=== PATIENT | female | born 1950 | race Caucasian/White ===

== ENCOUNTER 2024-10-03 15:59 | Emergency (ER) | payer MEDICARE, OTHER ==
--- OUTSIDE RECORDS SUMMARY | 2024-10-03 16:02 | XMS REPORT | Clinical Summary ---
Author Name Unknown Organization [facility] Address [address] [place] [address] Care Team Providers Care Tub Attendant Name Role Phone Richard Patel MD Unavailable [phone] Tyler Herzog MD Primary Care Provider [phone] Allergies No known active allergies Medications famotidine (PEPCID) 20 mg tablet Take 1 tablet (20 mg) by mouth daily. 07/20/2023 Active citalopram (CeleXA) 20 mg tablet Take 1 tablet (20 mg) by mouth daily. 08/11/2023 Active fluticasone propionate (FLONASE) 50 mcg/spray nasal spray Inhale 1 spray (50 mcg) into each nostril daily. 07/20/2023 Active losartan-hydroc hlorothiazide (HYZAAR) 100-25 mg per tablet Take 1 tablet by mouth daily. 07/20/2023 Active amLODIPine (NORVASC) 5 mg tablet Take 1 tablet (5 mg) by mouth daily. Active aspirin 81 mg chewable tablet Chew 1 tablet (81 mg) daily. Active calcium carbonate (TUMS) 500 mg (215 mg elemental calcium per tablet) chewable tablet Chew 1 tablet (500 mg) daily. Active cholecalciferol , vitamin D3, 25 mcg (1,000 unit) tablet Take 1 tablet (1,000 Units) by mouth daily. Active multivitamin tab tablet Take 1 tablet by mouth daily. Active omega-3 acid ethyl esters (LOVAZA) 1 g capsule Take 1 capsule (1 g) by mouth daily. Active polycarbophil (FIBERCON) 625 mg tablet Take 1 tablet (625 mg) by mouth daily. Active simvastatin (ZOCOR) 20 mg tablet Take 1 tablet (20 mg) by mouth at bedtime. Active estradiol (ESTRACE) 0.1 mg/g (0.01%) vaginal cream Insert 0.01 g into the vagina 3 (three) times a week on Monday, and Monday. 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 Hypertension 08/17/2023 Patient immunocompromised 08/17/2023 Gastroesophageal reflux disease 08/17/2023 Marginal zone lymphoma Encounters Date Type Department Care Team Description 05/28/2024 9:40 AM CDT [facility] [address] [place] [address] Main [facility], 8th [place] [address] Tyler Herzog MD Marginal zone lymphoma (Primary Dx) 05/28/2024 8:00 AM CDT - 05/28/2024 11:59 PM CDT Hospital [facility] [address] [place] [address], [place] [address] Angelique Irwin APRN Chronic lymphocytic leukemia of B-cell type Discharge Disposition: Home 05/28/2024 Orders Only Leukemia Center [address] [place] [address] Main [facility], 8th [place] [address] Angelique Irwin APRN Chronic lymphocytic leukemia of B-cell type (Primary Dx) 05/28/2024 Travel 11/30/2023 Orders Only [facility] [address] [place] [address], 8th [place] [address] Angelique Irwin APRN Chronic lymphocytic leukemia of B-cell type (Primary Dx) 11/28/2023 8:40 AM MERRY GO ROUND OPERATOR Follow[facility] [address] [place] [address] Main [facility], 8th [place] [address] Tyler Herzog MD Marginal zone lymphoma (Primary Dx); Chronic lymphocytic leukemia of B-cell type 11/28/2023 7:00 AM MERRY GO ROUND OPERATOR - 11/28/2023 11:59 PM MERRY GO ROUND OPERATOR Hospital [facility] [address] [place] [address] [place] [address] Angelique Irwin APRN Chronic lymphocytic leukemia of B-cell type Discharge Disposition: Home 11/28/2023 Travel after 10/04/2023 Surgical History Surgery Date Site/Laterality Comments COLONOSCOPY 2019 CHOLECYSTECTOMY 08/2022 Medical History Medical History Date Comments Hypertension 2001 Hyperlipidemia 2001 Fatty liver 2020 Gallstone 2020 Menopause 2007 Eczema 2022 Leukemia 2020 CLL Basal cell carcinoma of skin 2021 Lef t berg Family History Medical History Relation Name Comments Anal cancer Brother Kolby Cary 8 mos Prostate cancer Father Marlon Cary 40 yrs Relation Name Status Comments Brother Kolby Cary Father Marlon Cary Social History Tobacco Use Types Packs/Day Years Used Date Smoking Tobacco: Former Cigarettes 0.3 26 0 03/02/1963 - 03/02/1989 Smokeless Tobacco: Never Tobacco Cessation:Counseling Given: Not Answered Alcohol Use Standard Drinks/Week Comments Yes 2 (1 standard drink = 0.6 oz pur e alcohol) Weekly Comments Unknown Sex and Gender Information Value Date Recorded Sex Assigned at Not on file Legal Sex Female 2:24 PM CDT Gender Identity Not on file Sexual Orientation Not on file Obstetrics History Last Filed Vital Signs Vital Sign Reading Time Taken Comments Blood Pressure 134/71 05/28/2024 9:54 AM CDT Pulse 63 05/28/2024 9:54 AM CDT Temperature 36.8 C (98.2 F) 05/28/2024 9:54 AM CD T Respiratory Rate 19 05/28/2024 9:54 AM CDT Oxygen Saturation 96% 05/28/2024 9:54 AM CDT Inhaled Oxygen Concentration - - Weight 70.4 kg (155 lb 3.3 oz) 05/28/2024 9:54 A M CDT Height - - Body Mass Index 31.71 08/15/2023 8:55 AM MERRY GO ROUND OPERATOR Plan of Treatment Upcoming Encounters Date Type Department Care Team (Late st Contact Info) Description 11/29/2024 8:00 AM MERRY GO ROUND OPERATOR Appointment [facility] [address] [place] [address], [place] [address] Angelique David APRN [address] [place], [place] [id number] [email or web address] 11/29/2024 9:40 AM MERRY GO ROUND OPERATOR Follow-Up Le[facility] [address] [facility] Main Bldg, 8th [place] [address] yTler Herzog MD [address] [place] [address] [email or web address] Health Maintenance Due Date Last Done Comments COVID-19 Vaccine (2 - Pfizer risk series) 07/29/2022 07/08/2022 Influenza Vaccine (#1) 2024 07/08/2022 Pneumococcal Vaccine: 65+ Years Completed 3 Procedures Procedure Name Priority Date/Time Associated Diagnosis Comments .CBC Routine 05/28/2024 8:37 AM CDT Chronic lymphocytic leukemia of B-cell type COMPLETE BLOOD COUNT W/ DIFFERENTIAL Routine 05/28/2024 8:37 AM CDT Chronic lymphocytic leukemia of B-cell type TYPE AND SCREEN Routine 05/28/2024 8:37 AM CDT Chronic lymphocytic leukemia of B-cell type RETICULOCYTE COUNT AUTOMATED Routine 05/28/2024 8:37 AM CDT Chronic lymphocytic leukemia of B-cell type BETA 2 MICROGLOBULIN Routine 05/28/2024 8:37 AM CDT Chronic lymphocytic leukemia of B-cell type IMMUNOGLOBULIN G Routine 05/28/2024 8:37 AM CDT Chronic lymphocytic leukemia of B-cell type IMMUNOGLOBULIN M Routine 05/28/2024 8:37 AM CDT Chronic lymphocytic leukemia of B-cell type IMMUNOGLOBULIN A Routine 05/28/2024 8:37 AM CDT Chronic lymphocytic leukemia of B-cell type ASPARTATE AMINOTRANSFERASE Routine 05/28/2024 8:37 AM CDT Chronic lymphocytic leukemia of B-cell type MAGNESIUM LEVEL Routine 05/28/2024 8:37 AM CDT Chronic lymphocytic leukemia of B-cell type ELECTROLYTE PANEL Routine 05/28/2024 8:3 7 AM CDT Chronic lymphocytic leukemia of B-cell type ALANINE AMINOTRANSFERASE Routine 024 8:37 AM CDT Chronic lymphocytic leukemia of B-cell type LACTATE DEHYDROGENASE Routine 05/28/2024 8:37 AM CDT Chronic lymphocytic leukemia of B-cell type ALKALINE PHOSPHATASE Routine 05/28/2024 8:37 AM CDT Chronic lymphocytic leukemia of B-cell type FRACTIONATED BILIRUBIN Routine 8:37 AM CDT Chronic lymphocytic leukemia of B-cell type URIC ACID Routine 05/28/2024 8:37 AM CDT Chronic lymphocytic leukemia of B-cell type CREATININE Routine 05/28/2024 8:37 AM CDT Chronic lymphocytic leukemia of B-cell type BLOOD UREA NITROGEN Routine 05/28/2024 8 :37 AM CDT Chronic lymphocytic leukemia of B-cell type GLUCOSE, RANDOM Routine 05/28/2024 8:37 AM CDT Chronic lymphocytic leukemia of B-cell type PHOSPHORUS LEVEL Routine 05/28/2024 8:37 AM CDT Chronic lymphocytic leukemia of B-cell type CALCIUM LEVEL Routine 05/28/2024 8:37 AM CDT Chronic lymphocytic leukemia of B-cell type ALBUMIN LEVEL Routine 05/28/2024 8:37 AM CDT Chronic lymphocytic leukemia of B-cell type TOTAL PROTEIN Routine 05/28/2024 8:37 AM CDT Chronic lymphocytic leukemia of B-cell type .CBC Routine 11/28/2023 7:55 AM MERRY GO ROUND OPERATOR Chronic lymphocytic leukemia of B-cell type TYPE AND SCREEN Routine 11/28/2023 7:55 AM MERRY GO ROUND OPERATOR Chronic lymphocytic leukemia of B-cell type COMPLETE BLOOD COUNT W/ DIFFERENTIAL Routine 11/28/2023 7:55 AM MERRY GO ROUND OPERATOR Chronic lymphocytic leukemia of B-cell type RETICULOCYTE COUNT AUTOMATED Routine 11/28/2023 7:55 AM MERRY GO ROUND OPERATOR Chronic lymphocytic leukemia of B-cell type BETA 2 MICROGLOBULIN Routine 11/28/2023 7:55 AM MERRY GO ROUND OPERATOR Chronic lymphocytic leukemia of B-cell type IMMUNOGLOBULIN G Routine 11/28/2023 7:55 AM MERRY GO ROUND OPERATOR Chronic lymphocytic leukemia of B-cell type IMMUNOGLOBULIN M Routine 11/28/2023 7:55 AM MERRY GO ROUND OPERATOR Chronic lymphocytic leukemia of B-cell type IMMUNOGLOBULIN A Routine 11/28/2023 7:55 AM MERRY GO ROUND OPERATOR Chronic lymphocytic leukemia of B-cell type ASPARTATE AMINOTRANSFERASE Routine 11/28/2023 7:55 AM MERRY GO ROUND OPERATOR Chronic lymphocytic leukemia of B-cell type MAGNESIUM LEVEL Routine 11/28/2023 7:55 AM MERRY GO ROUND OPERATOR Chronic lymphocytic leukemia of B-cell type ELECTROLYTE PANEL Routine 11/28/2023 7:5 5 AM MERRY GO ROUND OPERATOR Chronic lymphocytic leukemia of B-cell type ALANINE AMINOTRANSFERASE Routine 024 7:55 AM MERRY GO ROUND OPERATOR Chronic lymphocytic leukemia of B-cell type LACTATE DEHYDROGENASE Routine 11/28/2023 7:55 AM MERRY GO ROUND OPERATOR Chronic lymphocytic leukemia of B-cell type ALKALINE PHOSPHATASE Routine 11/28/2023 7:55 AM MERRY GO ROUND OPERATOR Chronic lymphocytic leukemia of B-cell type FRACTIONATED BILIRUBIN Routine 7:55 AM MERRY GO ROUND OPERATOR Chronic lymphocytic leukemia of B-cell type URIC ACID Routine 11/28/2023 7:55 AM MERRY GO ROUND OPERATOR Chronic lymphocytic leukemia of B-cell type CREATININE Routine 11/28/2023 7:55 AM MERRY GO ROUND OPERATOR Chronic lymphocytic leukemia of B-cell type BLOOD UREA NITROGEN Routine 11/28/2023 7 :55 AM MERRY GO ROUND OPERATOR Chronic lymphocytic leukemia of B-cell type GLUCOSE, RANDOM Routine 11/28/2023 7:55 AM MERRY GO ROUND OPERATOR Chronic lymphocytic leukemia of B-cell type PHOSPHORUS LEVEL Routine 11/28/2023 7:55 AM MERRY GO ROUND OPERATOR Chronic lymphocytic leukemia of B-cell type CALCIUM LEVEL Routine 11/28/2023 7:55 AM MERRY GO ROUND OPERATOR Chronic lymphocytic leukemia of B-cell type ALBUMIN LEVEL Routine 11/28/2023 7:55 AM MERRY GO ROUND OPERATOR Chronic lymphocytic leukemia of B-cell type TOTAL PROTEIN Routine 11/28/2023 7:55 AM MERRY GO ROUND OPERATOR Chronic lymphocytic leukemia of B-cell type after 10/04/2023 Results * Glucose, Random (05/28/2024 8:37 AM CDT) Only the most recent of2 resultswithin the time period is included. Glucose Random 93 70 - 199 mg/dL 05/28/2024 9:32 AM CDT [facility] Blood Peripheral blood specimen / Unknown Venipuncture / Unknown 05/28/2024 8:37 AM CDT 05/28/2024 8:40 AM CDT Narrative [facility] - 05/28/2024 9:32 AM CDT Effective 04/27/16, the glucose reference intervals have been updated based on [place] [employer] guidelines (Standards of Medical Care in Diabetes 2016. Diabetes Care 2016; 39: S13-S22). Fasting blood glucose: Normal: 70-99 mg/dL Impaired fasting glucose (increased risk for diabetes or pre-diabetes): 100-125 mg/dL Diabetes mellitus: >/=126 mg/dL Random blood glucose: Normal: 70-199 mg/dL Note: Random glucose >100 mg/dL is associated with increased risk for diabetes Angelique David AUTOMATION TENDER LAB BLOOD ORDERABLES Final Result [facility] Unless otherwise noted, all lab tests performed by: Division of Pathology and Laboratory Medicine [address] [place] [phone] * (ABNORMAL) .CBC (05/28/2024 8:37 AM CDT) Only the most recent of2 resultswithin the time period is included. White Blood Cell 9.3 4.1 - 10.5 K/uL 05/28/2024 8:44 AM CDT [facility] Red Blood Cell 4.34 3.99 - 5.46 M/uL 05/28/2024 8:44 AM CDT [facility] Hemoglobin 13.7 12.2 - 15.3 g/dL 05/28/2024 8:44 AM CDT [facility] Hematocrit 40.4 36.4 - 46.8 % 05/28/2024 8:44 AM CDT [facility] Mean Cell Volume 93 82 - 99 fL 05/28/2024 8:44 AM CDT [facility] Mean Cell Hemoglobin 31.6 26.6 - 33.2 pg 05/28/2024 8:44 AM CDT [facility] Mean Cell Hemoglobin Concentration 33.9 31.1 - 35.2 g/dL 05/28/2024 8:44 AM CDT [facility] RDW-SD 41.2 37.5 - 49.7 fL 05/28/2024 8:44 AM CDT [facility] Red Cell Diameter Width 12.0 11.6 - 15.5 % 05/28/2024 8:44 AM CDT [facility] Platelet 207 160 - 397 K/uL 05/28/2024 8:44 AM CDT [facility] Mean Platelet Volume 9.8 9.1 - 12.6 fL 05/28/2024 8:44 AM CDT [facility] INRBC 0.0 0.0 - 0.1 /100 WBC 05/28/2024 8:44 AM [facility] Comment: The INRBC (instrument NRBC) value reflects the enumeration of nucleated red blood cells contained in a 200uL sample of whole blood analyzed by the instrument. This value may differ from the NRBC value reported in a manual differential, which is based on a 100 cell differential. Neutrophil % 35.6(L) 43.2 - 72.7 % 05/28/2024 8:44 AM CDT [facility] Lymphocyte % 53.7(H) 16.8 - 46.2 % 05/28/2024 8:44 AM T [facility] Monocyte % 8.1 5.1 - 12.5 % 05/28/2024 8:44 AM [facility] Eosinophil % 2.2 0.4 - 6.3 % 05/28/2024 8:44 AM CDT [facility] Basophil % 0.2 0.2 - 1.4 % 05/28/2024 8:44 AM T [facility] IGRE % 0.2 0.1 - 1.5 % 05/28/2024 8:44 AM [facility] Comment:The IGRE% includes M etamyelocytes, Myelocytes and Promyelocytes. Neutrophil Abs 3.30 1.95 - 7.25 K/uL 05/28/2024 8:44 AM CDT [facility] Lymphocyte Abs 4.97(H) 1.01 - 3.24 K/uL 05/28/2024 8:44 AM CDT [facility] Monocyte Abs 0.75 0.24 - 0.85 K/uL 05/28/2024 8:44 AM CDT [facility] Eosinophil Abs 0.20 0.02 - 0.50 K/uL 05/28/2024 8:44 AM T [facility] Basophil Abs 0.02 0.02 - 0.09 K/uL 05/28/2024 8:44 AM CDT [facility] IG Abs 0.02 0.01 - 0.12 K/uL 05/28/2024 8:44 AM CDT [facility] Blood Peripheral blood specimen / Unknown Venipuncture / Unknown 05/28/2024 8:37 AM CDT 05/28/2024 8:40 AM CDT Angelique David AUTOMATION TENDER LAB BLOOD ORDERABLES Final Result [facility] Unless otherwise noted, all lab tests performed by: Division of Pathology and Laboratory Medicine [address] [place] [phone] * Fractionated Bilirubin (05/28/2024 8:37 AM CDT) Only the most recent of2 resultswithin the time period is included. Bilirubin Direct <0.2 0.0 - 0.3 mg/dL 05/28/2024 9:32 AM CDT [facility] Comment:Indocyanine Green (I CG) may cause falsely elevated bilirubin results. Total and direct bilirubin must not be measured from samples containing indocyanine green. Bilirubin Indirect 2023 9:32 AM CDT [facility] Comment:Unable to calculate Indirect Bilirubin result due to some parameters are outside reportable range Bilirubin Total 0.5 0.0 - 1.2 mg/dL 05/28/2024 9:32 AM CDT [facility] Comment:Indocyanine Green (I CG) may cause falsely elevated bilirubin results. Total and direct bilirubin must not be measured from samples containing indocyanine green. False elevation of total bilirubin can be seen in patients with IgG concentrations above 28 g/L. Blood Peripheral blood specimen / Unknown Venipuncture / Unknown 05/28/2024 8:37 AM CDT 05/28/2024 8:40 AM CDT Angelique Duarteen AUTOMATION TENDER LAB BLOOD ORDERABLES Final Result [facility] Unless otherwise noted, all lab tests performed by: Division of Pathology and Laboratory Medicine [address] [place] [phone] * Reticulocyte Count, Auto (05/28/2024 8:37 AM CDT) Only the most recent of2 resultswithin the time period is included. Pathologist [facility] Reticulocyte Count Automated 1.92 0.92 - 2.71 % 05/28/2024 8:44 AM CDT [facility] RETHE 35.6 29.9 - 38.4 pg 05/28/2024 8:44 AM CDT [facility] IRF 12.3 3.5 - 19.8 % 05/28/2024 8:44 AM CDT [facility] Retic Absolute 0.0833 0.04 - 0.13 M/uL 05/28/2024 8:44 AM CDT [facility] Blood Peripheral blood specimen / Unknown Venipuncture / Unknown 05/28/2024 8:37 AM CDT 05/28/2024 8:40 AM CDT Angelique David APRN LAB BLOOD ORDERABLES Final Result [facility] Unless otherwise noted, all lab tests performed by: Division of Pathology and Laboratory Medicine [address] [place] [phone] * Type and Screen (05/28/2024 8:37 AM CDT) Only the most recent of2 resultswithin the time period is included. Pathologist [facility] ABORh O POS 05/28/2024 8:31 AM CDT [facility] ABSC Negative 05/28/2024 8:31 AM CDT [facility] Clot Expiration 05/31/2024 23:59 05/28/2024 8:31 AM CDT [facility] Historical Record Check Complete 05/28/2024 8:31 AM CDT [facility] Blood Peripheral blood specimen / Unknown Venipuncture / Unknown 05/28/2024 8:37 AM CDT 05/28/2024 8:39 AM CDT Angelique David APRN BLOOD BANK TEST ORDER EDWIN Final Result [facility] [address] [place] [address] [phone] [place] [address] * Uric Acid (05/28/2024 8:37 AM CDT) Only the most recent of2 resultswithin the time period is included. Pathologist [facility] Uric Acid 4.3 2.4 - 5.7 mg/dL 05/28/2024 9:32 AM CDT [facility] Blood Peripheral blood specimen / Unknown Venipuncture / Unknown 05/28/2024 8:37 AM CDT 05/28/2024 8:40 AM CDT [facility]END[facility] LAB BLOOD ORDERABLES Final Result Performing Organization Address City/[facility] Co de Phone Number [facility] Unless otherwise noted, all lab tests performed by: Division of Pathology and Laboratory Medicine [address] [place] [phone] * BUN (05/28/2024 8:37 AM CDT) Only the most recent of2 resultswithin the time period is included. [facility] BUN 13 6 - 23 mg/dL 05/28/2024 9:32 AM CDT [facility] Blood Peripheral blood specimen / Unknown Venipuncture / Unknown 05/28/2024 8:37 AM CDT 05/28/2024 8:40 AM CDT [facility]ique [facility] LAB BLOOD ORDERABLES Final Result Performing Organization Address City/[facility]/ZIP Co de Phone Number [facility] Unless otherwise noted, all lab tests performed by: Division of Pathology and Laboratory Medicine [address] [place] [phone] * Alanine Aminotransferase (05/28/2024 8:37 AM CDT) Only the most recent of2 resultswithin the time period is included. [facility] ALT 29 <=33 U/L 05/28/2024 9:3 2 AM CDT [facility] Blood Peripheral blood specimen / Unknown Venipuncture / Unknown 05/28/2024 8:37 AM CDT 05/28/2024 8:40 AM CDT Angelique StockNetta [facility] LAB BLOOD ORDERABLES Final Result Performing Organization Address City/[facility] de Phone Number [facility] Unless otherwise noted, all lab tests performed by: Division of Pathology and Laboratory Medicine [address] [place] [phone] * Aspartate Aminotransferase (05/28/2024 8:37 AM CDT) Only the most recent of2 resultswithin the time period is included. Pathologist [facility] AST 24 <=32 U/L 05/28/2024 9:3 2 AM CDT [facility] Blood Peripheral blood specimen / Unknown Venipuncture / Unknown 05/28/2024 8:37 AM CDT 05/28/2024 8:40 AM CDT [facility]ique [facility] LAB BLOOD ORDERABLES Final Result Performing Organization Address [facility] de Phone Number [facility] Unless otherwise noted, all lab tests performed by: Division of Pathology and Laboratory Medicine [address] [place] [phone] * Total Protein (05/28/2024 8:37 AM CDT) Only the most recent of2 resultswithin the time period is included. Pathologist [facility] Tot Protein 7.1 6.4 - 8.3 gm/dL 05/28/2024 9:32 AM CDT [facility] Blood Peripheral blood specimen / Unknown Venipuncture / Unknown 05/28/2024 8:37 AM CDT 05/28/2024 8:40 AM CDT Narrative [facility] - 05/28/2024 9:32 AM CDT Reference range established based on adult population Angelique CarringtonFormerly [facility] LAB BLOOD ORDERABLES Final Result Performing Organization Address City/[facility] Co de Phone Number [facility] Unless otherwise noted, all lab tests performed by: Division of Pathology and Laboratory Medicine [address] [place] [phone] * Phosphorus Level (05/28/2024 8:37 AM CDT) Only the most recent of2 resultswithin the time period is included. Phosphorus Level 3.7 2.5 - 4.5 mg/dL 05/28/2024 9:32 AM CDT [facility] Blood Peripheral blood specimen / Unknown Venipuncture / Unknown 05/28/2024 8:37 AM CDT 05/28/2024 8:40 AM CDT [facility] BLOOD ORDERABLES Final Result Performing Organization Address [facility] de Phone Number [facility] Unless otherwise noted, all lab tests performed by: Division of Pathology and Laboratory Medicine [address] [place] [phone] * (ABNORMAL) Alkaline Phosphatase (05/28/2024 8:37 AM CDT) Only the most recent of2 resultswithin the time period is included. Alkaline Phosphatase 135(H) 35 - 104 U/L 05/28/2024 9:32 AM CDT [facility] Blood Peripheral blood specimen / Unknown Venipuncture / Unknown 05/28/2024 8:37 AM CDT 05/28/2024 8:40 AM CDT [facility] LAB BLOOD ORDERABLES Final Result Performing Organization Address City/[facility] de Phone Number [facility] Unless otherwise noted, all lab tests performed by: Division of Pathology and Laboratory Medicine [address] [place] [phone] * Magnesium Level (05/28/2024 8:37 AM CDT) Only the most recent of2 resultswithin the time period is included. Magnesium Level 2.3 1.6 - 2.6 mg/dL 05/28/2024 9:32 AM CDT [facility] Blood Peripheral blood specimen / Unknown Venipuncture / Unknown 05/28/2024 8:37 AM CDT 05/28/2024 8:40 AM CDT [facility] LAB BLOOD ORDERABLES Final Result Performing Organization Address [facility] de Phone Number [facility] Unless otherwise noted, all lab tests performed by: Division of Pathology and Laboratory Medicine [address] [place] [phone] * LDH (05/28/2024 8:37 AM CDT) Only the most recent of2 resultswithin the time period is included. [facility] LDH 197 135 - 214 U/L 05/28/2024 9:31 AM CDT [facility] Blood Peripheral blood specimen / Unknown Venipuncture / Unknown 05/28/2024 8:37 AM CDT 05/28/2024 8:39 AM CDT Narrative [facility] - 05/28/2024 9:31 AM CDT Results greater than 1651 U/L may not be reliable due to matrix effect with extended dilution as it exceeds the speech teacher's recommended limit. Caution should be exercised when interpreting such values and done in conjunction with clinical context. [facility] LAB BLOOD ORDERABLES Final Result Performing Organization Address [facility] de Phone Number [facility] Unless otherwise noted, all lab tests performed by: Division of Pathology and Laboratory Medicine [address] [place] [phone] * (ABNORMAL) IgA (05/28/2024 8:37 AM CDT) Only the most recent of2 resultswithin the time period is included. [facility] IgA 44(L) 85 - 499 mg/dL 05/28/2024 3:15 PM CDT [facility] Blood Peripheral blood specimen / Unknown Venipuncture / Unknown 05/28/2024 8:37 AM CDT 05/28/2024 8:40 AM CDT us Angelique David AUTOMATION [employer]END[employer] LAB BLOOD ORDERABLES Final Result [facility] Unless otherwise noted, all lab tests performed by: Division of Pathology and Laboratory Medicine [address] [place] [id number] * IgM (05/28/2024 8:37 AM CDT) Only the most recent of2 resultswithin the time period is included. IgM 48 35 - 242 mg/dL 05/28/2024 3:15 PM CDT [facility] Blood Peripheral blood specimen / Unknown Venipuncture / Unknown 05/28/2024 8:37 AM CDT 05/28/2024 8:40 AM CDT Angelique KernsNetta AUTOMATION TENDER LAB BLOOD ORDERABLES Final Result Performing Organization Address City/[facility] Co de Phone Number [facility] Unless otherwise noted, all lab tests performed by: Division of Pathology and Laboratory Medicine [address] [place] [phone] * IgG (05/28/2024 8:37 AM CDT) Only the most recent of2 resultswithin the time period is included. IgG 721 610 - 1,616 mg/dL 05/28/2024 3:15 PM CDT [facility] Blood Peripheral blood specimen / Unknown Venipuncture / Unknown 05/28/2024 8:37 AM CDT 05/28/2024 8:40 AM CDT us Angelique David AUTOMATION TENDER LAB BLOOD ORDERABLES Final Result Performing Organization Address City/State/[facility] Co de Phone Number [facility] Unless otherwise noted, all lab tests performed by: Division of Pathology and Laboratory Medicine [address] [place] [phone] * Creatinine (05/28/2024 8:37 AM CDT) Only the most recent of2 resultswithin the time period is included. Creatinine 0.76 0.51 - 0.95 mg/dL 05/28/2024 9:32 AM CDT [facility] eGFR 82 >=60 mL/min/1.7 3 sq. m 05/28/2024 9:32 AM CDT [facility] Comment: The eGFRcr is calculated with the 2020 CKD-EPI creatinine equation using creatinine, patient's age, and sex for adults 18 years of age and older. Other factors, especially muscle mass, may affect accuracy and need to be considered. According to the Kidney Disease: Improving Global Outcomes (KDIGO) CKD Work Group 2012 Clinical Practice Guideline, chronic kidney disease (CKD) is defined as the abnormalities of kidney structure or function, present for more than 3 months, with implications for health. CKD should be classified by cause, GFR category, and albuminuria category. KDIGO guidelines provide the following GFR categories. Stage / Description / GFR mL/min/1.73 m2: G1* / Normal or high / >= 90 G2* / Mildly decreased / 60-89 G3a / Mildly to moderately decreased / 45-59 G3b / Moderately to severely decreased / 30-44 G4 / Severely decreased / 15-29 G5 / Kidney failure / <15 *In the absence of evidence of kidney damage, neither G1 nor G2 fulfill criteria for CKD. Blood Peripheral blood specimen / Unknown Venipuncture / Unknown 05/28/2024 8:37 AM CDT 05/28/2024 8:40 AM CDT Angelique David APRN LAB BLOOD ORDERABLES Final Result [facility] Unless otherwise noted, all lab tests performed by: Division of Pathology and Laboratory Medicine [address] [place] [address] [place] [address] * Calcium Level (05/28/2024 8:37 AM CDT) Only the most recent of2 resultswithin the time period is included. Calcium Level Total 10.0 8.2 - 10.2 mg/dL 05/28/2024 9:32 AM CDT [facility] Blood Peripheral blood specimen / Unknown Venipuncture / Unknown 05/28/2024 8:37 AM CDT 05/28/2024 8:40 AM CDT [facility] LAB BLOOD ORDERABLES Final Result Performing Organization Address [facility] de Phone Number [facility] Unless otherwise noted, all lab tests performed by: Division of Pathology and Laboratory Medicine [address] [place] [phone] * Beta 2 Microglobulin (05/28/2024 8:37 AM CDT) Only the most recent of2 resultswithin the time period is included. Beta 2 Microglobulin 1.90 0.80 - 2.30 mg/L 05/28/2024 3:15 PM CDT [facility] Blood Peripheral blood specimen / Unknown Venipuncture / Unknown 05/28/2024 8:37 AM CDT 05/28/2024 8:40 AM CDT Narrative [facility] - 05/28/2024 3:15 PM CDT This test is measured by turbidimetric methodology on [facility] Optilite analyzer. Results obtained in different methods are not interchangeable. [facility] LAB BLOOD ORDERABLES Final Result Performing Organization Address [facility] de Phone Number [facility] Unless otherwise noted, all lab tests performed by: Division of Pathology and Laboratory Medicine [address] [place] [phone] * Albumin Level (05/28/2024 8:37 AM CDT) Only the most recent of2 resultswithin the time period is included. Pathologist [facility] Albumin Level 4.6 3.5 - 5.2 gm/dL 05/28/2024 9:32 AM CDT [facility] Blood Peripheral blood specimen / Unknown Venipuncture / Unknown 05/28/2024 8:37 AM CDT 05/28/2024 8:40 AM CDT [facility] LAB BLOOD ORDERABLES Final Result Performing Organization Address City/[facility] Co de Phone Number [facility] Unless otherwise noted, all lab tests performed by: Division of Pathology and Laboratory Medicine [address] [place] [phone] * (ABNORMAL) Electrolyte Panel (05/28/2024 8:37 AM CDT) Only the most recent of2 resultswithin the time period is included. Sodium Level 141 136 - 145 mmol/L 05/28/2024 9:32 AM CDT [facility] Potassium Level 4.5 3.4 - 4.5 mmol/L 05/28/2024 9:32 AM CDT [facility] Chloride 99 98 - 107 mmol/L 05/28/2024 9:32 AM CDT [facility] CO2 31(H) 22 - 29 mmol/L 05/28/2024 9:32 AM CDT [facility] Anion Gap 11 4 - 14 mmol/L 05/28/2024 9:32 AM CDT [facility] Blood Peripheral blood specimen / Unknown Venipuncture / Unknown 05/28/2024 8:37 AM CDT 05/28/2024 8:40 AM CDT Angelique [facility] LAB BLOOD ORDERABLES Final Result Performing Organization Address [facility] Co de Phone Number [facility] Unless otherwise noted, all lab tests performed by: Division of Pathology and Laboratory Medicine [address] [place] [phone] after 10/04/2023 Insurance [facility] MEDICARE ADVANTAGE [employer] MEDICARE ADVANTAGE Care Teams Tub Attendant Relationship Specialty Start Date End Date Richard Patel MD [address] [place] [id number] PCP - External Follow Up [facility] 07/27/23 Tyler Herzog MD [address] [place] [phone] [email or web address] PCP - General Leukemia 07/28/23
[2024-10-03] MEDS ORDERED: MECLIZINE HCL 12.5 MG TAB ONE (17:05)
[2024-10-03] MEDS ORDERED: ONDANSETRON 4 MG/2 ML VIAL ONE (17:05)
--- NOTE | 2024-10-03 17:05 | RAD REPORT ---
EXAMINATION: ONE VIEW CHEST XR CLINICAL INDICATION: COUGH TECHNIQUE: Frontal chest projection is submitted. Examination is limited by patient positioning and t echnique. COMPARISON: No prior exam. FINDINGS: Linear atelectasis is seen in the right lung base. The lungs are otherwise emphysematous but clear. T he heart is normal in size. No displaced fractures identified. IMPRESSION: Mild linear atelectasis right lung base.
[2024-10-03] MEDS ORDERED: NA CHLORIDE 0.9% 500 ML ONE (17:06)
[2024-10-03] MEDS ORDERED: FOLIC ACID 5 MG/ML VIAL ONE (17:06)
[2024-10-03 17:15] LABS: Absolute Eosinophils 0.2 K/uL (0-0.5); Absolute Lymphocytes (CBC) 5.2 K/uL (0.7-4.9); Absolute Monocytes 0.7 K/uL (0.1-1.3); Absolute Neutrophil 4.1 K/uL (1.8-8.0); Basophils % 0.3 % (0-1.3); Eosinophils % 1.7 % (0-4.4); Hematocrit 40.4 % (36.0-45.0); Hemoglobin 13.9 g/dL (12.0-15.0); Lymphocytes % 50.8 % (15.3-44.8); MCH 32.2 pg (27.0-35.0); MCHC 34.5 g/dL (32.0-36.0); MCV 93.2 fL (80-100); MPV 8.2 fL (7.6-11.3); Monocytes % 6.9 % (3.3-12.3); Neutrophils % 40.3 % (41.7-73.7); Nucleated Red Blood Cells % 0.1 % (0-0); Platelets 242 thou/uL (152-406); RBC Red Blood Cell Count 4.33 M/uL (3.86-4.86)
[2024-10-03 17:16] LABS: Sqamous Epithelial <5 /HPF (None Seen); Urine Bacteria None Seen /HPF (<20); Urine Culture Reflex Order REFLEXED; Urine Microscopic Reflex YN ORDER UMIC; Urine RBC <5 /HPF (None Seen); Urine WBC Clump Rare /HPF (None Seen); Urine Yeast (Budding) Trace /HPF (None Seen)
[2024-10-03 17:18] LABS: Specific Gravity 1.007 (1.005-1.030); Urine Bilirubin Negative (Negative); Urine Blood Negative (Negative); Urine Clarity Clear (Clear); Urine Color Light-Yellow (Yellow); Urine Glucose Negative (Negative); Urine Ketones Negative (Negative); Urine Protein Negative (Negative); Urine Urobilinogen Normal (Normal); Urine pH 6.5 (5.0-7.0)
[2024-10-03 17:19] LABS: Urine Nitrite Negative (Negative)
[2024-10-03 17:19] LABS: PT Prothrombin Time 11.8 SECONDS (9.4-12.5); Protime INR 1.06
[2024-10-03 17:34] LABS: ALT/SGPT 48 U/L (13-56); AST/SGOT 30 U/L (15-37); Albumin 3.9 g/dL (3.4-5.0); Albumin/Globulin Ratio 1.1 (1.1-1.8); Alkaline Phosphatase 138 U/L (45-117); Anion Gap 8.2 mEq/L (5.0-15.0); BUN Blood Urea Nitrogen 16 mg/dL (7-18); Bicarbonate 31 mEq/L (21-32); Bilirubin Direct < 0.2 mg/dL (0-0.2); Bilirubin Indirect, Calculated 0.2 mg/dL (0.2-0.8); Bilirubin Total 0.4 mg/dL (0.2-1.0); Globulin 3.4 g/dL (2.3-3.5); Glomerular Filtration Rate 80 ml/min (=/>90); Glucose Level 112 mg/dL (74-106); Lipase 38 U/L (13-75); Magnesium 2.3 mg/dL (1.6-2.4); NT PRO-BNP 55 pg/mL (<450); Potassium 3.2 mEq/L (3.5-5.1); Protein, Total 7.3 g/dL (6.4-8.2); Sodium Level 138 mEq/L (136-145); Troponin High Sensitivity 6.3 pg/mL (<58.9)
--- NOTE | 2024-10-03 17:59 | RAD REPORT ---
EXAMINATION: CAROTID DUPLEX ULTRASOUND CLINICAL INDICATION: DIZZINESS TECHNIQUE: Real-time grayscale, color flow and spectral Doppler sonographic images were obtained of t he extracranial carotid system using a linear transducer. COMPARISON: No prior exam. FINDINGS: RIGHT: Common carotid artery: 67 cm/s Internal carotid artery: 110 cm/s External carotid artery: 37 cm/s Right ICA/CCA ratio: 1.6 Plaque: No significant plaquing seen. Vertebral artery Antegrade LEFT: Common carotid artery: 78 cm/s Internal carotid artery: 102 cm/s External carotid artery: 97 cm/s Left ICA/CCA ratio: 1.6 Plaque: No significant plaquing seen. Vertebral artery Antegrade IMPRESSION: No hemodynamically significant stenosis (greater than 50%) within the extracranial internal carotid a rteries. The degrees of stenosis, if any, are quantified according to the consensus statement of the Society o f Radiologists in Ultrasound (SRUS). Please refer to Mitesh E, Sanchez C, Abhijit G et al. Carotid Artery Stenosis: Wren-Scale and Doppler US Diagnosis--Society of Radiologists in Ultrasound Consensus Conference. Radiology. 2003;229(2):340-6.
--- NOTE | 2024-10-03 18:20 | RAD REPORT ---
EXAM: CT brain without contrast HISTORY: DIZZINESS COMPARISON: None TECHNIQUE: Multiple contiguous axial images were obtained and a CT of the brain without contrast. Sag ittal and coronal reformats were performed. One or more of the following dose reduction techniques were used: Automated exposure control, adjust ment of the mA and/or kV according to patient size, and/or iterative reconstruction. FINDINGS: No evidence of hydrocephalus, intracranial hemorrhage, or extra-axial fluid collection. The brain is normal in morphology. No evidence of midline shift or areas of brain edema. The calvarium is intact. The visualized paranasal sinuses and mastoid air cells are essentially clear . IMPRESSION: No evidence of acute intracranial abnormality.
[2024-10-03] MEDS ORDERED: CEFDINIR 300 MG CAP PO ONE (18:36)
[2024-10-03] MEDS ORDERED: CEFTRIAXONE 1000 MG/VIAL ONE (18:36)
[2024-10-03] MEDS ORDERED: POTASSIUM 25 MEQ EFFERV TAB ONE (18:36)
--- NOTE | 2024-10-03 18:49 | EDPHYS ---
Physician Documentation [facility] Name: Carmelina Agee Age: 74 yrs Sex: Female : 1950 Arrival Date: 10/03/2024 Time: 15:59 Bed 18 Private MD: BETTINA Physician Campbell Rasheed HPI: 10/03 18:43 This 74 yrs old Female presents to ER via Ambulatory with complaints of ad Dizziness. 18:43 The patient presents with dizziness. Onset: The symptoms/episode began/occurred 1 ad day(s) ago. Context: occurred at home, occurred while the patient was walking. Modifying factors: The symptoms are alleviated by holding head still, the symptoms are aggravated by movement of head. Associated signs and symptoms: The patient has no apparent associated signs or symptoms. Severity of symptoms: At their worst the symptoms were mild in the emergency department the symptoms are unchanged. Patient's baseline: Neuro: alert and fully oriented. The patient has not experienced similar symptoms in the past. Historical: - Allergies: 16:33 No Known Allergies; ap3 - Home Meds: 16:33 losartan-hydrochlorothiazide 100-25 mg oral tablet [Active]; simvastatin 20 mg Oral ap3 tablet [Active]; citalopram 20 mg tablet for anxiety with depression [Active]; amlodipine 5 mg tablet for hypertension [Active]; famotidine 20 mg Oral tablet [Active]; aspirin 81 mg Oral capsule [Active]; - PMHx: 16:33 Hypertensive disorder; Hypercholesterolemia; marginal base lymphoma; ap3 - Immunization history:: Client reports receiving the 2nd dose of the Covid vaccine. - Infectious Disease History:: Denies. - Social history:: Smoking status: unknown. ROS: 18:44 Constitutional: Negative for fever, chills, and weight loss, Eyes: Negative for injury, ad pain, redness, and discharge, ENT: Negative for injury, pain, and discharge, Neck: Negative for injury, pain, and swelling, Cardiovascular: Negative for chest pain, palpitations, and edema, Respiratory: Negative for shortness of breath, cough, wheezing, and pleuritic chest pain, Abdomen/GI: Negative for abdominal pain, nausea, vomiting, diarrhea, and constipation, Back: Negative for injury and pain, : Negative for injury, bleeding, discharge, and swelling, MS/Extremity: Negative for injury and deformity, Skin: Negative for injury, rash, and discoloration, Psych: Negative for depression, anxiety, suicide ideation, homicidal ideation, and hallucinations, Allergy/Immunology: Negative for hives, rash, and allergies, Endocrine: Negative for neck swelling, polydipsia, polyuria, polyphagia, and marked weight changes, Hematologic/Lymphatic: Negative for swollen nodes, abnormal bleeding, and unusual bruising, 18:44 Neuro: Positive for dizziness, Exam: 18:44 Constitutional: This is a well developed, well nourished patient who is awake, alert, ad and in no acute distress. Head/Face: Normocephalic, atraumatic. Eyes: Pupils equal round and reactive to light, extra-ocular motions intact. Lids and lashes normal. Conjunctiva and sclera are non-icteric and not injected. Cornea within normal limits. Periorbital areas with no swelling, redness, or edema. ENT: Nares patent. No nasal discharge, no septal abnormalities noted. Tympanic membranes are normal and external auditory canals are clear. Oropharynx with no redness, swelling, or masses, exudates, or evidence of obstruction, uvula midline. Mucous membranes moist. Neck: Trachea midline, no thyromegaly or masses palpated, and no cervical lymphadenopathy. Supple, full range of motion without nuchal rigidity, or vertebral point tenderness. No Meningismus. Chest/axilla: Normal chest wall appearance and motion. Nontender with no deformity. No lesions are appreciated. Cardiovascular: Regular rate and rhythm with a normal S1 and S2. No gallops, murmurs, or rubs. Normal PMI, no JVD. No pulse deficits. Respiratory: Lungs have equal breath sounds bilaterally, clear to auscultation and percussion. No rales, rhonchi or wheezes noted. No increased work of breathing, no retractions or nasal flaring. Abdomen/GI: Soft, non-tender, with normal bowel sounds. No distension or tympany. No guarding or rebound. No evidence of tenderness throughout. Back: No spinal tenderness. No costovertebral tenderness. Full range of motion. Skin: Warm, dry with normal turgor. Normal color with no rashes, no lesions, and no evidence of cellulitis. MS/ Extremity: Pulses equal, no cyanosis. Neurovascular intact. Full, normal range of motion., bilateral aka Psych: Awake, alert, with orientation to person, place and time. Behavior, mood, and affect are within normal limits. 18:44 Neuro: Orientation: is normal, Mentation: is normal, appropriate for stated age, no acute changes, Memory: is normal, appropriate for stated age, no acute changes, Cranial nerves: grossly normal, is grossly normal based on the patient's age, no acute changes, Cerebellar function: is grossly normal, is grossly normal based on the patient's age, no acute changes, Motor: is normal, is grossly normal based on the patient's age, no acute changes, moves all fours, strength is normal, strength is 5/5 in all extremities, Sensation: no obvious gross deficits, appropriate no acute changes, Gait: is steady, appropriate for age, Deep tendon reflexes are 2+ (normal) in the bilateral brachioradialis, bicep, tricep and patellar and Achilles tendons, Babinski testing is normal, seizure activity, is not displayed by the patient, Vital Signs: 16:32 BP 153 / 70; Pulse 62; Resp 17; Temp 97.3; Pulse Ox 100% ; Weight 67.13 kg; Height 4 ap3 ft. 11 in. ; 18:00 BP 119 / 67; Pulse 59; Resp 16; Pulse Ox 98% ; me1 18:45 BP 124 / 63; Pulse 67; Resp 16; Pulse Ox 97% ; me1 16:32 Body Mass Index 29.89 (67.13 kg, 149.86 cm) ap3 MDM: 16:13 Medical Screening Exam initiated ad 16:51 Medical Screening Exam initiated ad 18:46 Differential diagnosis: cardiac arrhythmia, CVA, generalized weakness, GI bleed, head ad injury, hypovolemia, idiopathic dizziness, near-syncope, sepsis, TIA, vertigo. Data reviewed: vital signs, nurses notes, lab test result(s), EKG, radiologic studies, CT scan, doppler, plain films. Consideration of Admission/Observation Escalation of care including admission/observation considered. I considered the following discharge prescriptions or medication management in the emergency department Medications were administered in the Emergency Department. See MAR. Independent interpretation of the following test(s) in the Emergency Department EKG: See my EKG interpretation above. Test considered but Not performed: MRI: NO MRI. Historians other than the Patient: PT WELL INFORMED. 10/03 16:16 Order name: Basic Metabolic Panel; Complete [facility]: [facility] 16:16 Order name: CBC with Diff; Complete Time: 18:09 [facility] 10/03 16:16 Order name: LFT's; Complete Time: 18:09 [facility] 10/03 16:16 Order name: Magnesium; Complete Time: 18:09 [facility] 10/03 16:16 Order name: NT PRO-BNP; Complete Time: 18:09 [facility] 10/03 16:16 Order name: PT-INR; Complete Time: 18:09 [facility] 10/03 16:16 Order name: Troponin HS; Complete Time: 18:09 [facility] 10/03 16:16 Order name: Urinalysis w/ reflexes; Complete Time: 18:09 [facility] 10/03 16:16 Order name: Lipase; Complete Time: 18:09 [facility] 10/03 17:21 Order name: Urine Culture [facility] 10/03 18:13 Order name: Urine Culture [facility] 10/03 16:16 Order name: XRAY Chest (1 view); Complete Time: 18:09 [facility] 10/03 16:16 Order name: CT Head Brain wo Cont; Complete Time: 18:43 [facility] 10/03 16:16 Order name: US Carotid Artery Bilateral; Complete Time: 18:09 [facility] 10/03 16:16 Order name: Cardiac monitoring [facility] 10/03 16:16 Order name: EKG - Nurse/Tech [facility] 10/03 16:16 Order name: IV Saline Lock; Complete Time: 17:09 [facility] 10/03 16:16 Order name: Labs collected and sent; Complete Time: 17:09 [facility] 10/03 16:16 Order name: O2 Per Protocol; Complete Time: 17:09 [facility] 10/03 16:16 Order name: O2 Sat Monitoring; Complete Time: 17:09 [facility] 10/03 18:10 Order name: PO challenge: JUICE; Complete Time: 18:34 [facility] Administered Medications: 17:13 Drug: NS 0.9% IV 500 ml 500 ml IV at 1 bolus once; to be given as a bolus over 30 me1 minutes Volume: 500 ml; Route: IV; Rate: 1 bolus; Site: left antecubital; 19:02 Follow up: Response: No adverse reaction; IV Status: Completed infusion; IV Intake: me1 500ml 19:02 Follow up: Response: No adverse reaction me1 17:13 Drug: foLIC Acid IVPB 1 mg IVPB once Route: IVPB; Site: left antecubital; me1 17:14 Follow up: Response: No adverse reaction; IV Status: Completed infusion me1 17:13 Drug: Meclizine PO 25 mg PO once Route: PO; me1 18:18 Follow up: Response: No adverse reaction me1 17:13 Drug: Ondansetron IVP 4 mg IVP once; over 2 minutes Route: IVP; Site: left antecubital; me1 18:18 Follow up: Response: No adverse reaction; Nausea is decreased me1 18:41 Drug: Rocephin IV 1 grams IV at per protocol once; Given slow IV push per pharmacy me1 instructions Route: IV; Rate: per protocol; Site: left antecubital; 18:42 Follow up: IV Status: Completed infusion me1 18:42 Follow up: IV Status: Completed infusion me1 18:41 Drug: Cefdinir PO 300 mg PO once Route: PO; me1 18:42 Follow up: Response: No adverse reaction me1 18:42 Drug: Potassium PO Effervescent Tablet 25 mEq PO once; dissolve in 4 ounces of water or me1 juice Route: PO; 18:42 Follow up: Response: No adverse reaction me1 Disposition Summary: 10/03/24 18:48 Discharge Ordered Notes: Location: Home ad Problem: new ad Symptoms: have improved ad Condition: Stable ad Diagnosis - Other peripheral vertigo, bilateral ad - UTI/ Urinary tract infection, site not specified ad - Dizziness and giddiness ad Followup: ad - With: Private Physician - When: 2 - 3 days - Reason: Recheck today's complaints, Continuance of care, Re-evaluation by your physician Followup: ad - With: Christian Ambrose MD - When: 2 - 3 days - Reason: Recheck today's complaints, Re-evaluation by your physician Followup: ad - With: Sudha Cutler MD - When: 2 - 3 days - Reason: Recheck today's complaints, Re-evaluation by your physician Discharge Instructions: - Discharge Summary Sheet ad - Benign Positional Vertigo ad - Dizziness ad - Urinary Tract Infection, Adult ad - Vertigo ad - Urinary Tract Infection, Adult, [id number]-[id number] ad - Vertigo, Qvdu-aj-[id number] ad - Aspirin and Your Heart ad - Dizziness, Hvoo-yo-[id number] ad Forms: - Medication Reconciliation Form ad - Antibiotic Education ad - Prescription Opioid Use ad - Patient Portal [facility]ructions [facility] - [facility] Prescriptions: - cefdinir 300 mg Oral capsule - take 1 capsule ORAL route 2 times per day for 5 days; 10 capsule; Refills: 0, [facility] Product Selection Permitted - ondansetron 4 mg Oral Tablet,disintegrating - take 1 tablet ORAL route every 8 hours for 5 days; 20 tablet; Refills: 0, [facility] Product Selection Permitted - Meclizine 25 mg Oral Tablet - take 1 tablet ORAL route every 8 hours As needed; 30 tablet; Refills: 0, [facility] Product Selection Permitted - Folic Acid 1 mg Oral Tablet - take 1 tablet ORAL route once daily; 30 tablet; Refills: 0, Product Selection [facility] Permitted Signatures: Dispatcher [employer] EDMS Campbell Rasheed MD MD cha Prokisch, Amanda RN RN ap3 Erin May RN RN me1 Corrections: (The following items were deleted from the chart) 16:17 16:16 BASIC METABOLIC PANEL+C.LAB.BRZ ordered. EDMS EDMS 16:17 16:16 CBC+H.LAB.BRZ ordered. EDMS EDMS 16:17 16:16 HEPATIC FUNCTION+C.LAB.BRZ ordered. EDMS EDMS 16:17 16:16 MAGNESIUM+C.LAB.BRZ ordered. EDMS EDMS 16:17 16:16 PROBNP+C.LAB.BRZ ordered. EDMS EDMS 16:17 16:16 PROTIME (+INR)+COAG.LAB.BRZ ordered. EDIA EDMS 16:17 16:16 Troponin High Sensitivity+C.LAB.BRZ ordered. EDMS EDMS 16:17 16:16 Urinalysis+U.LAB.BRZ ordered. EDMS EDMS 16:17 16:16 LIPASE+C.LAB.BRZ ordered. EDMS EDMS 16:17 16:17 Chest Single View+RAD.RAD.BRZ ordered. EDMS EDMS 16:17 16:17 Head Brain Wo Cont+CT.RAD.BRZ ordered. EDMS EDMS 16:17 16:17 Carotid Artery Bilateral+US.RAD.BRZ ordered. EDMS EDMS 16:17 16:17 MR STROKE PROTOCOL+MRI.RAD.BRZ ordered. EDMS EDMS
--- NOTE | 2024-10-03 18:49 | ER ---
Nurse's Notes [facility] Name: Carmelina Agee Age: 74 yrs Sex: Female : 1950 Arrival Date: 10/03/2024 Time: 15:59 Bed 18 Private MD: Diagnosis: Other peripheral vertigo, bilateral;UTI/ Urinary tract infection, site not specified;Dizziness and giddiness Presentation: 10/03 16:32 Chief complaint: Patient states: she has been getting dizzy when moving her head to the ap3 side intermittently since Monday. Coronavirus screen: At this time, the client does not indicate any symptoms associated with coronavirus-19. Ebola Screen: No symptoms or risks identified at this time. Initial Sepsis Screen: Does the patient meet any 2 criteria? No. Patient's initial sepsis screen is negative. Does the patient have a suspected source of infection? No. Patient's initial sepsis screen is negative. Risk Assessment: Do you want to hurt yourself or someone else? Patient reports no desire to harm self or others. Onset of symptoms was September 30, 2024. 16:32 Method Of Arrival: Ambulatory ap3 16:32 Acuity: LISET 3 ap3 Triage Assessment: 16:36 General: Appears in no apparent distress. Behavior is calm, cooperative, appropriate ap3 for age. Pain: Denies pain. Neuro: Level of Consciousness is awake, alert, obeys commands, Oriented to person, place, time, situation, Appropriate for age Gait is steady, Speech is normal, Facial symmetry appears normal, Reports dizziness, when moving her head side to side. Cardiovascular: Patient's skin is warm and dry. Respiratory: Airway is patent Respiratory effort is even, unlabored, Respiratory pattern is regular, symmetrical. GI: Reports nausea. Historical: - Allergies: 16:33 No Known Allergies; ap3 - Home Meds: 16:33 losartan-hydrochlorothiazide 100-25 mg oral tablet [Active]; simvastatin 20 mg Oral ap3 tablet [Active]; citalopram 20 mg tablet for anxiety with depression [Active]; amlodipine 5 mg tablet for hypertension [Active]; famotidine 20 mg Oral tablet [Active]; aspirin 81 mg Oral capsule [Active]; - PMHx: 16:33 Hypertensive disorder; Hypercholesterolemia; marginal base lymphoma; ap3 - Immunization history:: Client reports receiving the 2nd dose of the Covid vaccine. - Infectious Disease History:: Denies. - Social history:: Smoking status: unknown. Screenin:37 Abuse screen: Denies threats or abuse. Nutritional screening: No deficits noted. ap3 Tuberculosis screening: No symptoms or risk factors identified. 18:05 [facility] ED Fall Risk Assessment (Adult) History of falling in the last 3 months, me1 including since admission No falls in past 3 months (0 pts) Confusion or Disorientation No (0 pts) Intoxicated or Sedated No (0 pts) Impaired Gait No (0 pts) Mobility Assist Device Used No (0 pt) Altered Elimination No (0 pt) Score/Fall Risk Level 0 - 2 = Low Risk Oriented to surroundings, Provided non-skid footwear, Hourly rounding (assess needs \T\ fall precautionary measures) done. Assessment: 17:00 General: Appears comfortable, well groomed, well developed, well nourished, Behavior is me1 calm, cooperative, appropriate for age, Reports she has been getting dizzy when moving her head to the side intermittently since Monday. 18:05 Pain: Denies pain. Neuro: Level of Consciousness is awake, alert, obeys commands, me1 Oriented to person, place, time, situation, Appropriate for age Reports dizziness, since Monday. Cardiovascular: Patient's skin is warm and dry. Respiratory: Airway is patent Respiratory effort is even, unlabored, Respiratory pattern is regular, symmetrical. GI: Reports nausea. : No signs and/or symptoms were reported regarding the genitourinary system. EENT: No signs and/or symptoms were reported regarding the EENT system. Derm: Skin is intact, is healthy with good turgor, Skin is pink, warm \T\ dry. Musculoskeletal: No signs and/or symptoms reported regarding the musculoskeletal system. Vital Signs: 16:32 BP 153 / 70; Pulse 62; Resp 17; Temp 97.3; Pulse Ox 100% ; Weight 67.13 kg; Height 4 ap3 ft. 11 in. ; 18:00 BP 119 / 67; Pulse 59; Resp 16; Pulse Ox 98% ; me1 18:45 BP 124 / 63; Pulse 67; Resp 16; Pulse Ox 97% ; me1 16:32 Body Mass Index 29.89 (67.13 kg, 149.86 cm) ap3 ED Course: 16:05 Patient arrived in ED. al6 16:13 Campbell Rasheed MD is Attending Physician. ad 16:33 Triage completed. ap3 16:37 Arm band placed on right wrist. ap3 16:51 XRAY Chest (1 view) In Process Unspecified. EDMS 17:00 Erin May, RN is Primary Nurse. me1 17:08 Initial lab(s) drawn, by ct, sent to lab. Inserted saline lock: 20 gauge in left zm antecubital area, using aseptic technique. Blood collected. Flushed with 10 mL NS. 17:09 Urine collected: clean catch specimen, clear. zm 17:09 Basic Metabolic Panel Sent. zm 17:09 CBC with Diff Sent. zm 17:09 LFT's Sent. zm 17:09 Magnesium Sent. zm 17:10 NT PRO-BNP Sent. zm 17:10 PT-INR Sent. zm 17:10 Troponin HS Sent. zm 17:10 Urinalysis w/ reflexes Sent. zm 17:10 Lipase Sent. zm 17:32 EKG done, by ED staff, reviewed by Campbell Rasheed MD. me1 17:47 US Carotid Artery Bilateral In Process Unspecified. EDMS 18:02 CT Head Brain wo Cont In Process Unspecified. EDMS 18:05 Patient has correct armband on for positive identification. Bed in low position. Call me1 light in reach. Side rails up X 1. Provided Education on: POC. Verbalized understanding.. Client placed on continuous cardiac and pulse oximetry monitoring. NIBP monitoring applied. monitoring manager on. Pulse ox on. NIBP on. 18:05 No provider procedures requiring assistance completed. me1 18:18 Urine Culture Sent. me1 18:48 Christian Ambrose MD is Referral Physician. ad 18:49 Sudha Cutler MD is Referral Physician. ad 19:01 IV discontinued, intact, bleeding controlled, No redness/swelling at site. Pressure me1 dressing applied. Administered Medications: 17:13 Drug: NS 0.9% IV 500 ml 500 ml IV at 1 bolus once; to be given as a bolus over 30 me1 minutes Volume: 500 ml; Route: IV; Rate: 1 bolus; Site: left antecubital; 19:02 Follow up: Response: No adverse reaction; IV Status: Completed infusion; IV Intake: me1 500ml 19:02 Follow up: Response: No adverse reaction me1 17:13 Drug: foLIC Acid IVPB 1 mg IVPB once Route: IVPB; Site: left antecubital; me1 17:14 Follow up: Response: No adverse reaction; IV Status: Completed infusion me1 17:13 Drug: Meclizine PO 25 mg PO once Route: PO; me1 18:18 Follow up: Response: No adverse reaction me1 17:13 Drug: Ondansetron IVP 4 mg IVP once; over 2 minutes Route: IVP; Site: left antecubital; me1 18:18 Follow up: Response: No adverse reaction; Nausea is decreased me1 18:41 Drug: Rocephin IV 1 grams IV at per protocol once; Given slow IV push per pharmacy me1 instructions Route: IV; Rate: per protocol; Site: left antecubital; 18:42 Follow up: IV Status: Completed infusion me1 18:42 Follow up: IV Status: Completed infusion me1 18:41 Drug: Cefdinir PO 300 mg PO once Route: PO; me1 18:42 Follow up: Response: No adverse reaction me1 18:42 Drug: Potassium PO Effervescent Tablet 25 mEq PO once; dissolve in 4 ounces of water or me1 juice Route: PO; 18:42 Follow up: Response: No adverse reaction me1 Medication: 18:05 VIS not applicable for this client. me1 Intake: 19:02 IV: 500ml; Total: 500ml. me1 Outcome: 18:48 Discharge ordered by . ad 19:01 Discharged to home ambulatory, with [place], [facility] [place] Condition: stable 19:01 Discharge instructions given to patient, family, Instructed on discharge instructions, follow up and referral plans. medication usage, Demonstrated understanding of instructions, follow-up care, medications, Prescriptions given X 3, 19:02 Patient left the ED. me1 Signatures: Dispatcher [employer] Campbell Martinez MD MD cha Prokisch, Amanda RN RN ap3 [place] Michelle, RN RN me1 Jovita Ramos6 Corrections: (The following items were deleted from the chart) 18:03 16:32 Chief complaint: Patient states: she has been getting dizzy when moving her head me1 to the side intermittently since Monday. ap3 18:05 17:00 General: Appears comfortable, well groomed, well developed, well nourished, me1 Behavior is calm, cooperative, appropriate for age, Reports she has been getting dizzy when moving her head to the side intermittently since Monday. me1 18:16 17:00 General: Appears comfortable, well groomed, well developed, well nourished, me1 Behavior is calm, cooperative, appropriate for age, Reports she has been getting dizzy when moving her head to the side intermittently since Monday. me1 18: 18:05 Pain: Denies pain. me1 me1 18: 18:05 Neuro: me1 me1
[2024-10-04 01:16] VITALS: TEMP 97.3
[2024-10-04 01:18] VITALS: BP 124/63; O2SAT 97
--- NOTE | 2024-10-04 12:41 | EKG ---
Test Date: 2024-10-03 Test Time: 17:28:39 Software Validation Technician: MEASUREMENT RESULTS: Intervals: Rate: 56 CT: 192 QRSD: 80 QT: 456 QTc: 440 [place]: P: 56 CT: 192 QRS: 59 T: 48 INTERPRETIVE STATEMENTS: Sinus bradycardia with sinus arrhythmia Low voltage QRS Nonspecific T wave abnormality Abnormal ECG No previous ECG available for comparison Electronically Signed On 10-04-24 12:40:05 GLOBAL ENGINEERING MANAGER by Jayy Webb
== END 2024-10-03 19:02 | disposition home or self-care (01) ==
LOC: ER 15:59
DX: H81.393 Other peripheral vertigo, bilateral (principal); N39.0 Urinary tract infection, site not specified; I10 Essential (primary) hypertension; E78.00 Pure hypercholesterolemia, unspecified; Z79.899 Other long term (current) drug therapy
CPT/HCPCS: 96361; 93005; 87088; 85025; 81001; 87086; 80048; 36415; 83735; 85610; 80076; 84484; 83690; 83880; 70450; 71045; 93880; 96375; 96374; 99285; J8597; J2405; J7040; J0696